=== PATIENT | male | born 1955 | race African-American/Black ===

== ENCOUNTER 2017-05-01 13:53 | Emergency (ER) | payer OTHER ==
[~2017-05-01] VITALS: Ht 180.3 cm; Wt 68.2 kg
[~2017-05-01 13:53] MED LIST: BICALUTAMIDE50 MG PO; CITALOPRAM HBR10 MG PO; DESYREL100 MG PO; DITROPAN5 MG PO; DIVALPROEX SOD500 MG PO; GABAPENTIN300 MG PO; LIBRIUM25 MG PO; MOBIC15 MG PO; PERCOCET 5/31 TABLET PO; RISPERDAL4 MG PO; RISPERIDONE1 MG PO; TAMSULOSIN HCL0.4 MG PO; TRAZODONE HCL100 MG PO; ULTRA-LIGHT RO1 EACH MC; X
[2017-05-01 14:53] LABS: HEMATOCRIT 36.5 % (38.0-50.0); MCHC 32.3 G/DL (30.0-36.0); MCV 86.5 FL (86-99); MEAN PLAT.VOLUME 9.9 uM^3 (9.0-12.4); PLATELET COUNT 170 K/uL (156-360); RBC DIS.WIDTH-CV 13.6 % (11.8-14.6); RBC DIS.WIDTH-SD 42.3 % (39-53); RED BLOOD COUNT 4.22 M/uL (4.00-5.50); WHITE BLOOD COUNT 4.5 K/uL (4.1-10.2)
[2017-05-01 15:11] LABS: CHLORIDE 106 mEq/L (99-109); POTASSIUM 4.1 mEq/L (3.7-5.4); SODIUM 143 mEq/L (136-147)
[2017-05-01 15:13] LABS: GLUCOSE 55 mg/dL (70-99)
[2017-05-01 15:14] LABS: ANION GAP 17 MEQ/L (2-14)
[2017-05-01 15:15] LABS: TOTAL BILIRUBIN 0.2 mg/dL (0.0-1.0)
[2017-05-01 15:16] LABS: SERUM ETHYL ALCOHOL 317 mg/dL
[2017-05-01 15:17] LABS: ALKALINE PHOSPHATASE 63 IU/L (3-129); GFR ESTIMATE (CALCULATED) > 59 mL/min/
[2017-05-01 15:18] LABS: UREA NITROGEN (BUN) 26 mg/dL (9-23)
[2017-05-02 08:31] LABS: ADD MIUA? NO; BILIRUBIN NEGATIVE; BLOOD NEGATIVE; COLOR YELLOW ((YELLOW)); GLUCOSE (STRIP) NEGATIVE; KETONES NEGATIVE; LEUKOCYTES NEGATIVE; NITRITE NEGATIVE; PROTEIN (STRIP) 30; SPECIFIC GRAVITY 1.018 (1.000-1.030)
[2017-05-02 09:03] LABS: ADD MEDTOX COMMENT Y; AMPHETAMINE NEGATIVE (500 ng/mL); BARBITURATES NEGATIVE (200 ng/mL); BENZODIAZEPINES PRESUMPTIVE POSITIVE (150 ng/mL); COCAINE NEGATIVE (150 ng/mL); INTERNAL CONTROLS VALID? YES; METHADONE NEGATIVE (200 ng/mL); METHAMPHETAMINE NEGATIVE (500 ng/mL); OPIATES (MORPHINE) NEGATIVE (100 ng/mL); OXYCODONE NEGATIVE (100 ng/mL); PHENCYCLIDINE NEGATIVE (25 ng/mL); PROPOXYPHENE NEGATIVE (300 ng/mL); THC CANNABINOIDS PRESUMPTIVE POSITIVE (50 ng/mL); TRICYCLIC ANTIDEPRESSANTS NEGATIVE (300 ng/mL)
[2017-05-02 10:08] LABS: BENZODIAZEPINES, URINE SCREEN POSITIVE (200 ng/mL)
[2017-05-02 12:26] VITALS: BP 101/60
== END 2017-05-02 12:41 | disposition home or self-care (01) ==
LOC: EME 13:53
PROVIDERS: Emergency Medicine
DX: F33.2 Major depressive disorder, recurrent severe without psychotic features (principal); R45.851 Suicidal ideations; F10.229 Alcohol dependence with intoxication, unspecified; Y90.8 Blood alcohol level of 240 mg/100 ml or more; I25.2 Old myocardial infarction; G40.909 Epilepsy, unspecified, not intractable, without status epilepticus; F17.200 Nicotine dependence, unspecified, uncomplicated; Z87.442 Personal history of urinary calculi
CPT/HCPCS: 80053; 81003; 84999; 85027; 90839; 99281; 99285; G0480; J3360

== ENCOUNTER 2017-05-04 10:12 | Inpatient (IN) | payer OTHER ==
[~2017-05-04] VITALS: Ht 177.8 cm; Wt 71.8 kg
[2017-05-04 11:04] LABS: HEMATOCRIT 39.6 % (38.0-50.0); MCH 27.9 PG (29.0-34.0); MCHC 32.3 G/DL (30.0-36.0); MCV 86.5 FL (86-99); MEAN PLAT.VOLUME 10.2 uM^3 (9.0-12.4); PLATELET COUNT 187 K/uL (156-360); RBC DIS.WIDTH-SD 43.8 % (39-53); RED BLOOD COUNT 4.58 M/uL (4.00-5.50)
[2017-05-04 11:17] LABS: CHLORIDE 110 mEq/L (99-109); POTASSIUM 4.6 mEq/L (3.7-5.4); SODIUM 147 mEq/L (136-147)
[2017-05-04 11:21] LABS: ANION GAP 22 MEQ/L (2-14)
[2017-05-04 11:23] LABS: ALKALINE PHOSPHATASE 77 IU/L (3-129); SERUM ETHYL ALCOHOL 210 mg/dL
[2017-05-04 11:25] LABS: UREA NITROGEN (BUN) 36 mg/dL (9-23)
[2017-05-04 11:40] LABS: GFR ESTIMATE (CALCULATED) 32 mL/min/; GLUCOSE 33 mg/dL (70-99); TOTAL BILIRUBIN 0.3 mg/dL (0.0-1.0)
[2017-05-04 12:06] LABS: POINT-OF-CARE METER ID UU14100415
[2017-05-04 12:09] LABS: MAGNESIUM 2.1 mg/dL (1.3-2.7)
[2017-05-04 16:20] LABS: LIPASE 35 U/L (1.0-51.0)
[2017-05-04 17:04] VITALS: BP 131/59
[2017-05-04 19:51] VITALS: BP 135/63
[2017-05-04 22:44] LABS: TROP-I INTERPRETATION NEGATIVE; TROPONIN-I < 0.01 ng/mL (0.0-0.30)
[2017-05-04 23:19] VITALS: BP 131/71
[2017-05-05 04:13] VITALS: BP 135/73
[2017-05-05 07:20] VITALS: BP 133/74
[2017-05-05 08:23] LABS: ADD MIUA? NO; BILIRUBIN NEGATIVE; BLOOD NEGATIVE; COLOR YELLOW ((YELLOW)); GLUCOSE (STRIP) NEGATIVE; KETONES NEGATIVE; LEUKOCYTES NEGATIVE; NITRITE NEGATIVE; PROTEIN (STRIP) NEGATIVE; SPECIFIC GRAVITY 1.009 (1.000-1.030); UCUL ADDED? NO; UROBILINOGEN 0.2 MG/DL (0.2-1.0)
[2017-05-05 09:47] LABS: ANION GAP 10 MEQ/L (2-14); CHLORIDE 102 MEQ/L (99-109); GFR ESTIMATE (CALCULATED) 53 mL/min/; GLUCOSE 170 mg/dL (70-99); POTASSIUM 4.2 MEQ/L (3.7-5.4); SAMPLE HEMOLYSIS CHECK 0; SAMPLE ICTERIC CHECK 0; SAMPLE LIPEMIA CHECK 0; SODIUM 139 MEQ/L (136-147); UREA NITROGEN (BUN) 34 mg/dL (9-23)
[2017-05-05 15:50] VITALS: BP 160/80
[2017-05-05] MEDS ORDERED: MIRTAZAPINE30 MG PO (22:19)
[2017-05-06 00:09] VITALS: BP 145/71
[2017-05-06 07:05] VITALS: BP 168/78
[2017-05-06 09:02] LABS: MCH 27.9 PG (29.0-34.0); MCHC 32.6 G/DL (30.0-36.0); MCV 85.6 FL (86-99); MEAN PLAT.VOLUME 10.2 uM^3 (9.0-12.4); PLATELET COUNT 134 K/uL (156-360); RBC DIS.WIDTH-CV 13.5 % (11.8-14.6); RBC DIS.WIDTH-SD 41.4 % (39-53); RED BLOOD COUNT 4.09 M/uL (4.00-5.50); WHITE BLOOD COUNT 3.1 K/uL (4.1-10.2)
[2017-05-06 09:41] LABS: ANION GAP 11 MEQ/L (2-14); CHLORIDE 108 MEQ/L (99-109); GFR ESTIMATE (CALCULATED) > 59 mL/min/; GLUCOSE 130 mg/dL (70-99); POTASSIUM 4.1 MEQ/L (3.7-5.4); SAMPLE HEMOLYSIS CHECK 0; SAMPLE ICTERIC CHECK 0; SAMPLE LIPEMIA CHECK 0; SODIUM 141 MEQ/L (136-147); UREA NITROGEN (BUN) 21 mg/dL (9-23)
[2017-05-06] MEDS ORDERED: FOLIC ACID0.8 MG PO (10:39)
[2017-05-06] MEDS ORDERED: LOSARTAN POTASS50 MG PO (10:40)
[2017-05-06] MEDS ORDERED: MAGOX 400400 MG PO (10:41)
[2017-05-06] MEDS ORDERED: MELOXICAM15 MG PO (10:42)
[2017-05-06] MEDS ORDERED: OMEPRAZOLE40 M1 PO (10:42)
[2017-05-06] MEDS ORDERED: TAMSULOSIN HCL0.4 MG PO (10:43)
[2017-05-06] MEDS ORDERED: THIAMINE HCL100 MG PO (10:43)
[2017-05-06] MEDS ORDERED: NEURONTIN600 MG PO (10:44)
[2017-05-06 16:48] VITALS: BP 159/82
[2017-05-07 00:40] VITALS: BP 157/77
[2017-05-07 06:34] LABS: EOSINOPHIL (%) 3.7 % (0-5); EOSINOPHIL COUNT 0.1 K/uL (0-0.3); HEMATOCRIT 36.3 % (38.0-50.0); IMMATURE GRANULOCYTE (%) 0.3 % (0.0-0.7); INSTRUMENT ABS NEUTROPHIL CT 1.4 K/uL; LYMPHOCYTE COUNT 1.4 K/uL (1.0-2.8); MCH 27.6 PG (29.0-34.0); MCHC 32.2 G/DL (30.0-36.0); MCV 85.6 FL (86-99); MEAN PLAT.VOLUME 10.5 uM^3 (9.0-12.4); MONOCYTE (%) 10.8 % (3-12); MONOCYTE COUNT 0.4 K/uL (0-0.8); NEUTROPHIL (%) 42.3 % (45-76); NEUTROPHIL COUNT 1.4 K/uL (1.8-6.4); PLATELET COUNT 129 K/uL (156-360); RBC DIS.WIDTH-CV 13.7 % (11.8-14.6); RBC DIS.WIDTH-SD 42.2 % (39-53); RED BLOOD COUNT 4.24 M/uL (4.00-5.50); WHITE BLOOD COUNT 3.2 K/uL (4.1-10.2)
[2017-05-07 06:58] LABS: ANION GAP 11 MEQ/L (2-14); CHLORIDE 111 MEQ/L (99-109); GFR ESTIMATE (CALCULATED) > 59 mL/min/; GLUCOSE 122 mg/dL (70-99); POTASSIUM 4.4 MEQ/L (3.7-5.4); SAMPLE HEMOLYSIS CHECK 0; SAMPLE ICTERIC CHECK 0; SAMPLE LIPEMIA CHECK 0; SODIUM 146 MEQ/L (136-147); UREA NITROGEN (BUN) 19 mg/dL (9-23)
[2017-05-07 08:59] VITALS: BP 162/77
== END 2017-05-07 15:00 | disposition home or self-care (01) | DRG 683 ==
LOC: EME → EDBD 10:12 → 5EAST 14:18 → EDOF 14:18 → 5EAST 16:50
PROVIDERS: Emergency Medicine; Hospitalist; Internal Medicine; Student in an Organized Health Care Education/Training Program
DX: N17.9 Acute kidney failure, unspecified (principal); R45.851 Suicidal ideations; F10.24 Alcohol dependence with alcohol-induced mood disorder; E87.2 Acidosis; F33.9 Major depressive disorder, recurrent, unspecified; T51.0X2A Toxic effect of ethanol, intentional self-harm, initial encounter; E16.1 Other hypoglycemia; E86.0 Dehydration; F10.229 Alcohol dependence with intoxication, unspecified; K70.10 Alcoholic hepatitis without ascites; Y90.7 Blood alcohol level of 200-239 mg/100 ml; E78.5 Hyperlipidemia, unspecified; E86.9 Volume depletion, unspecified; F17.210 Nicotine dependence, cigarettes, uncomplicated; F43.20 Adjustment disorder, unspecified; I10 Essential (primary) hypertension; J44.9 Chronic obstructive pulmonary disease, unspecified; K21.9 Gastro-esophageal reflux disease without esophagitis; M79.7 Fibromyalgia; Z59.0 Homelessness; Y92.480 Sidewalk as the place of occurrence of the external cause; Z76.5 Malingerer [conscious simulation]; Z87.442 Personal history of urinary calculi; I25.2 Old myocardial infarction
CPT/HCPCS: 76770; 80048; 80053; 81003; 82948; 83690; 83735; 84484; 84999; 85025; 85027; 90839; 94660; 99281; 99285; G0480; J1630; J1644; J2060; J3360; J3411; J3475; J7030; J7070; S0028

== ENCOUNTER 2017-05-08 01:35 | Emergency (ER) | payer OTHER ==
[~2017-05-08] VITALS: Ht 185.4 cm; Wt 72.9 kg
[~2017-05-08 01:35] MED LIST changes: +FOLIC ACID0.8 MG PO; +LOSARTAN POTASS50 MG PO; +MAGOX 400400 MG PO; +MELOXICAM15 MG PO; +MIRTAZAPINE30 MG PO; +NEURONTIN600 MG PO; +OMEPRAZOLE40 M1 PO; +THIAMINE HCL100 MG PO
[2017-05-08 02:49] LABS: HEMATOCRIT 32.6 % (38.0-50.0); MCH 27.7 PG (29.0-34.0); MCHC 32.5 G/DL (30.0-36.0); MCV 85.3 FL (86-99); MEAN PLAT.VOLUME 10.2 uM^3 (9.0-12.4); PLATELET COUNT 127 K/uL (156-360); RBC DIS.WIDTH-CV 13.9 % (11.8-14.6); RBC DIS.WIDTH-SD 42.3 % (39-53); RED BLOOD COUNT 3.82 M/uL (4.00-5.50); WHITE BLOOD COUNT 4.7 K/uL (4.1-10.2)
[2017-05-08 03:01] LABS: CHLORIDE 110 mEq/L (99-109); POTASSIUM 4.2 mEq/L (3.7-5.4); SODIUM 146 mEq/L (136-147)
[2017-05-08 03:04] LABS: GLUCOSE 88 mg/dL (70-99)
[2017-05-08 03:05] LABS: ANION GAP 15 MEQ/L (2-14)
[2017-05-08 03:06] LABS: SERUM ETHYL ALCOHOL 65 mg/dL
[2017-05-08 03:07] LABS: GFR ESTIMATE (CALCULATED) > 59 mL/min/
[2017-05-08 03:08] LABS: UREA NITROGEN (BUN) 18 mg/dL (9-23)
[2017-05-08 06:36] VITALS: BP 170/88
== END 2017-05-08 06:37 | disposition home or self-care (01) ==
LOC: EME → EDBD 01:35 → EME 06:37
PROVIDERS: Emergency Medicine
DX: F10.229 Alcohol dependence with intoxication, unspecified (principal); Y90.3 Blood alcohol level of 60-79 mg/100 ml; F32.9 Major depressive disorder, single episode, unspecified; Z76.5 Malingerer [conscious simulation]; Z59.0 Homelessness; I10 Essential (primary) hypertension; F17.200 Nicotine dependence, unspecified, uncomplicated
CPT/HCPCS: 80048; 85027; 90839; 99281; 99285; G0480

== ENCOUNTER 2017-05-09 04:49 | Emergency (ER) | payer OTHER ==
[~2017-05-09] VITALS: Ht 185.4 cm; Wt 72.2 kg
[2017-05-09 05:34] LABS: EOSINOPHIL (%) 4.5 % (0-5); EOSINOPHIL COUNT 0.2 K/uL (0-0.3); HEMATOCRIT 33.4 % (38.0-50.0); IMMATURE GRANULOCYTE (%) 0.4 % (0.0-0.7); INSTRUMENT ABS NEUTROPHIL CT 1.8 K/uL; LYMPHOCYTE COUNT 2.6 K/uL (1.0-2.8); MCH 28.2 PG (29.0-34.0); MCHC 33.2 G/DL (30.0-36.0); MCV 84.8 FL (86-99); MEAN PLAT.VOLUME 9.9 uM^3 (9.0-12.4); MONOCYTE (%) 9.8 % (3-12); MONOCYTE COUNT 0.5 K/uL (0-0.8); NEUTROPHIL (%) 34.9 % (45-76); NEUTROPHIL COUNT 1.8 K/uL (1.8-6.4); PLATELET COUNT 149 K/uL (156-360); RBC DIS.WIDTH-CV 14.1 % (11.8-14.6); RBC DIS.WIDTH-SD 43.1 % (39-53); RED BLOOD COUNT 3.94 M/uL (4.00-5.50); WHITE BLOOD COUNT 5.1 K/uL (4.1-10.2)
[2017-05-09 05:42] LABS: CHLORIDE 108 mEq/L (99-109); POTASSIUM 3.9 mEq/L (3.7-5.4); SODIUM 145 mEq/L (136-147)
[2017-05-09 05:45] LABS: GLUCOSE 80 mg/dL (70-99)
[2017-05-09 05:46] LABS: ANION GAP 16 MEQ/L (2-14); TOTAL BILIRUBIN 0.3 mg/dL (0.0-1.0)
[2017-05-09 05:47] LABS: SERUM ETHYL ALCOHOL 49 mg/dL
[2017-05-09 05:48] LABS: ALKALINE PHOSPHATASE 94 IU/L (3-129); GFR ESTIMATE (CALCULATED) > 59 mL/min/
[2017-05-09 05:49] LABS: UREA NITROGEN (BUN) 18 mg/dL (9-23)
[2017-05-09 05:51] LABS: LIPASE 77 U/L (1.0-51.0)
[2017-05-09 12:50] VITALS: BP 143/87
== END 2017-05-09 12:52 | disposition home or self-care (01) ==
LOC: EME 04:49
PROVIDERS: Emergency Medicine
DX: F32.9 Major depressive disorder, single episode, unspecified (principal); R45.851 Suicidal ideations; R10.9 Unspecified abdominal pain; I25.2 Old myocardial infarction; M79.7 Fibromyalgia; K21.9 Gastro-esophageal reflux disease without esophagitis; J44.9 Chronic obstructive pulmonary disease, unspecified; I10 Essential (primary) hypertension; E78.5 Hyperlipidemia, unspecified; E11.9 Type 2 diabetes mellitus without complications; G43.909 Migraine, unspecified, not intractable, without status migrainosus; F17.200 Nicotine dependence, unspecified, uncomplicated
CPT/HCPCS: 80053; 83690; 85025; 90837; 99281; 99285; G0480

== ENCOUNTER 2017-05-09 19:16 | Emergency (ER) | payer OTHER ==
[~2017-05-09] VITALS: Ht 185.4 cm; Wt 68.4 kg
[2017-05-10 06:50] VITALS: BP 146/80
== END 2017-05-10 06:58 | disposition home or self-care (01) ==
LOC: EME 19:16
DX: F10.129 Alcohol abuse with intoxication, unspecified (principal); F32.9 Major depressive disorder, single episode, unspecified; E11.9 Type 2 diabetes mellitus without complications; J44.9 Chronic obstructive pulmonary disease, unspecified; E78.5 Hyperlipidemia, unspecified; I10 Essential (primary) hypertension; I25.2 Old myocardial infarction; K21.9 Gastro-esophageal reflux disease without esophagitis; F17.200 Nicotine dependence, unspecified, uncomplicated
CPT/HCPCS: 99281; 99285